=== PATIENT | male | born 1935 | race Caucasian/White ===

== ENCOUNTER 2021-11-24 18:11 | Inpatient (IN) | payer MEDICARE, OTHER ==
[~2021-11-24] VITALS: Ht 165.1 cm; Wt 79.4 kg
--- NOTE | 2021-11-24 18:15 | NUR ---
[id number] FOR NOTED HYPOTENSION S/P DIALYSIS, FEBRILE FILM COLOR TESTER. PLACED COMFORTABLY IN BED. ATTACHED TO MATTRESS SPRING ENCASER. VITALS CHECKED.
--- NOTE | 2021-11-24 18:17 | NUR ---
PATIENT CAME WITH TRACHE ATTACHED TO VENT WITH SETTINGS OF AC MODE, TV 500 PEEP 5, FiO2 30% RATE. WITH RIGHT SUBCLAVIAN PERMCATH FOR HD. WITH GTUBE ON EPIGASTRIC AREA. PATIENT IS AWAKE BUT UNRESPONSIVE TO VERBAL COMMAND. WITHDRAWS TO PAIN. PLACED COMFORTABLY IN BED. VITALS CHECKED. ATTACHED TO MONITOR.
--- NOTE | 2021-11-24 18:20 | NUR ---
IV CANNULA ON LEFT FOREARM DISLODGED.
[2021-11-24] MEDS ORDERED: ACETAMINOPHEN 650 MG/SUPP.RECT RC ONE (18:21)
[2021-11-24] MEDS ORDERED: IV NS 0.9% 500 ML BAG IV ONE ×3 (18:30→22:00)
[2021-11-24] MEDS ORDERED: VANCOMYCIN 1 GM in IV D5W 250 ML IV ONE (18:30)
[2021-11-24] MEDS ORDERED: CEFEPIME 1 GM in IV D5W 50 ML IV ONE (18:30)
--- NOTE | 2021-11-24 18:30 | NUR ---
CXR DONE AT BEDSIDE
--- NOTE | 2021-11-24 18:31 | NUR ---
COVID ANTIGEN SWAB DONE AND GIVEN TO DIAL SCREW ASSEMBLER
--- NOTE | 2021-11-24 18:35 | NUR ---
Olaf mccormack in EDM - 11/24/21 at [address] KUHN MADE AWARE THAT PHARMACY CALLED TO INFORM HIM THAT CEFEPIME CANNOT BE GIVEN TO PATIENT COZ HE IS ALLERGIC TO PENICILLIN
--- NOTE | 2021-11-24 18:36 | NUR ---
RT RECEIVED PT. FOR LOW BP. PORTEX 8 CUFFED ON [facility]. VENT. AC 18 500 +5 30 % . BAG AND MASK AT HEAD OF BED. SPARE TRACH, PLUGGED INTO RED OUTLET. WILL CONTINUE TO MONITOR. Addendum: 11/24/21 at 1838 by LUIS WILSON RT Amended: Links added.
--- NOTE | 2021-11-24 18:45 | NUR ---
TRIED INSERTING F16 IFC BUT IT WAS DIFFICULT. PATIENT HAS HX OF PROSTATE CANCER. DR KUHN INFORMED. HE ORDERED TO USE CUEDE F14 IF WE CAN SO WE CAN TAKE URINE SAMPLES. TRIED USING CUEDE WELL, UNSUCCESSFUL. DR KUHN INFORMED. HE ORDERED NOT TO DO IT.
--- NOTE | 2021-11-24 18:45 | NUR ---
MOVE SHEET SUBMITTED AND CALLED FOR [facility] BED.
--- NOTE | 2021-11-24 19:15 | NUR ---
WHEELED PATIENT TO RADIOLOGY DEPT FOR CT SCAN
--- NOTE | 2021-11-24 19:27 | NUR ---
PER LAB LACTIC ACID 2.1
[2021-11-24 19:30] LABS: CARBON DIOXIDE 26 mmol/L (21-32); CHLORIDE 101 mmol/L (98-107); CREATININE 1.4 mg/dL (0.6-1.3); GLUCOSE 149 mg/dL (74-106); POTASSIUM 4.4 mmol/L (3.5-5.1); SODIUM SERUM 138 mmol/L (136-145); UREA NITROGEN, BLOOD 48 mg/dL (7-18)
--- NOTE | 2021-11-24 19:38 | NUR ---
NURSE EMERGENCY ROOM AT BEDSIDE
[2021-11-24 19:44] LABS: ALANINE AMINOTRANSFERASE 18 U/L (12-78); ALBUMIN 1.6 g/dL (3.4-5.0); ASPARTATE AMINOTRANSFERASE 259 U/L (15-37); BILIRUBIN,DIRECT 0.2 mg/dL (0.0-0.2); BILIRUBIN,TOTAL 0.5 mg/dL (0.2-1.0); TOTAL PROTEIN, SERUM 7.3 g/dL (6.4-8.2)
--- NOTE | 2021-11-24 20:00 | NUR ---
FF UP DR KUHN ABOUT THE CEFEPIME IV. PATIENT IS ALLERGIC TO PENICILLIN. HE ORDERED STILL TO GIVE. CALLED PHARMACY AND SPOKE TO VARGAS. SHE SAID TO CLOSE MONITOR PATIENT FOR ANY UNTOWARDS REACTION.
[2021-11-24 20:19] LABS: BASOPHILS # (AUTO) 0.1 K/uL (0.0-0.2); BASOPHILS % (AUTO) 0.7 % (0.0-2.0); EOSINOPHILS % (AUTO) 0.3 % (0.0-6.0); HEMATOCRIT 25 % (39-51); LYMPHOCYTES # (AUTO) 1.6 K/uL (0.8-4.8); MEAN CORPUSCULAR HGB CONC 33 g/dl (31.0-36.0); MEAN CORPUSCULAR VOLUME 95 fL (80-96); NEUTROPHILS # (AUTO) 8.7 K/uL (1.8-8.9); PLATELET COUNT (AUTO) 240 K/uL (150-450); RED BLOOD CELL COUNT(AUTO) 2.56 MIL/uL (4.5-6.0); WHITE BLOOD COUNT (AUTO) 11.4 K/uL (4.3-11.0)
--- NOTE | 2021-11-24 20:26 | NUR ---
IV INSERTION DONE TO LEFT WRIST USING G20 NEEDLE. FLUSHING DONE.
[2021-11-24 20:37] LABS: ALKALINE PHOSPHATASE 1843 U/L (46-116)
--- NOTE | 2021-11-24 20:44 | NUR ---
CRITICAL LAB LACTIC ACID 2.0
--- NOTE | 2021-11-24 20:58 | NUR ---
CALLED [facility] PAGED DR ROSENBERG FOR ADMISSION
--- NOTE | 2021-11-24 21:39 | NUR ---
DR. KUHN SPEAKING TO DR. ROSENBERG VIA PHONE CALL
--- NOTE | 2021-11-24 22:28 | NUR ---
RODRICK 115-1
[2021-11-24] MEDS ORDERED: ZOLPIDEM TARTRATE 5 MG TABLET PO PRN (22:30)
[2021-11-24] MEDS ORDERED: IV NS 0.9% 1,000 ML IV SCH (22:30)
[2021-11-24] MEDS ORDERED: Z GUARD REMEDY 4 OZ OINT TP PRN (22:30)
[2021-11-24] MEDS ORDERED: MAG HYDROX/AL HYDROX/SIMETH 30 ML UDC PO PRN (22:30)
[2021-11-24] MEDS ORDERED: ONDANSETRON HCL/PF 4 MG/2 ML VIAL IVP PRN (22:30)
[2021-11-24] MEDS ORDERED: MAGNESIUM HYDROXIDE 30 ML UDC PO PRN (22:30)
--- NOTE | 2021-11-24 22:38 | NUR ---
REPORT GIVEN TO SARAH NANCE
--- NOTE | 2021-11-24 22:58 | NUR ---
TRANSFERRED PATIENT VIA STRETCHER ATTACHED TO DIRECTOR FIELD SERVICES AND VENTILATOR.
--- NOTE | 2021-11-24 23:26 | NUR ---
RN NOTE RECEIVED PATIENT AT 2251 FROM ER. ARRIVED VIA GURNEY, TRANSFERRED TO BED BY 3 PEOPLE, MAX ASSIST. PATIENT IS NON-VERBAL, EYES CLOSED, UNABLE TO FOLLOW COMMANDS, OBTUNDED AT THIS TIME. BREATHING EVEN AND UNLABORED. NOTED WITH REFUGIO SPENCER #8. ON VENT, WITH SETTINGS OF AC 18, FIO2 30%, TV 500 ML, PEEP OF 5. TOLERATING WELL WITH OXYGEN SATURATION OF 100 PERCENT. TRACH T-PIECE DRESSING REPLACED. ATTACHED TO TELEMETRY MONITORING. NO DISTRESS NOTED. SKIN WARM AND DRY. PERIPHERAL IV ON LEFT FOREARM 20G & RIGHT WRIST 20G. PATENT. NO INFILTRATION, SECURED. NOTED WITH RIGHT UPPER CHEST PERMCATH FOR HD. DRESSING INTACT, NO BLEEDING. NOTED WITH PEG TUBE IN PLACE. DRESSING INTACT. NO RESIDUAL. NO FEEDING AT THIS TIME. HOB ELEVATED 35 DEGREES. SKIN ASSESSMENT DONE. WOUND PICTURES DONE AND FILED IN CHART. TURNED AND REPOSITIONED. BED LOW, IN LOCKED POSITION. CALL LIGHT WITHIN REACH.
[2021-11-25] VITALS (10 sets, daily range): BP systolic 77–132; BP diastolic 33–66
--- NOTE | 2021-11-25 | NUR ---
RN NOTE NO IVF RUNNING WHEN PATIENT WAS RECEIVED. ORDER OF NS 100 CC/HR NOTED AND CARRIED OUT.
[2021-11-25 00:08] LABS: ALBUMIN 1.5 g/dL (3.4-5.0); BILIRUBIN,DIRECT 0.2 mg/dL (0.0-0.2); BILIRUBIN,TOTAL 0.5 mg/dL (0.2-1.0); TOTAL PROTEIN, SERUM 6.7 g/dL (6.4-8.2)
--- NOTE | 2021-11-25 02:23 | NUR ---
RN NOTE PATIENT NOTED WITH DECREASED BLOOD PRESSURE. SYSTOLIC BP HAS BEEN DECREASING SINCE ADMISSION. MANUAL BLOOD PRESSURE TAKEN, CURRENT BLOOD PRESSURE TAKEN 5 MINUTES APART 95/50 & 98/40. PAGED , CHET. PER , INCREASE IVF NS TO 125 CC/HR FROM 100 CC/HR. NEW ORDER NOTED AND CARRIED OUT.
[2021-11-25] MEDS: IV NS 0.9% 1,000 ML IV SCH ×3 (02:29→17:40)
[2021-11-25] MEDS ORDERED: CEFEPIME 1 GM VIAL ONE (04:40)
[2021-11-25] MEDS ORDERED: CEFEPIME 2 GM in IV D5W 100 ML IV SCH (05:00)
[2021-11-25 06:43] LABS: BASOPHILS % (AUTO) 0.3 % (0.0-2.0); EOSINOPHILS % (AUTO) 0.5 % (0.0-6.0); HEMATOCRIT 23 % (39-51); HEMOGLOBIN 7.3 g/dL (13.5-17.5); LYMPHOCYTES # (AUTO) 1.1 K/uL (0.8-4.8); LYMPHOCYTES % (AUTO) 11.4 % (20.0-44.0); MEAN CORPUSCULAR HGB CONC 32 g/dl (31.0-36.0); MEAN CORPUSCULAR VOLUME 98 fL (80-96); MONOCYTES % (AUTO) 10.3 % (2.0-12.0); NEUTROPHILS # (AUTO) 7.7 K/uL (1.8-8.9); NEUTROPHILS % (AUTO) 77.5 % (43.0-81.0); PLATELET COUNT (AUTO) 174 K/uL (150-450); RED BLOOD CELL COUNT(AUTO) 2.34 MIL/uL (4.5-6.0)
[2021-11-25 07:00] LABS: CARBON DIOXIDE 20 mmol/L (21-32); CHLORIDE 104 mmol/L (98-107); CREATININE 1.5 mg/dL (0.6-1.3); GLUCOSE 161 mg/dL (74-106); MAGNESIUM 2.5 mg/dL (1.8-2.4); PHOSPHORUS 3.2 mg/dL (2.5-4.9); POTASSIUM 4.3 mmol/L (3.5-5.1); SODIUM SERUM 138 mmol/L (136-145); UREA NITROGEN, BLOOD 56 mg/dL (7-18)
--- NOTE | 2021-11-25 07:05 | NUR ---
RN NOTES RECEIVED PT ON BED, VENT /TRACH DEPENDENT , TRACH CARE DONE, TOLERAING VENT SETTING WELL, O2 SAT WNL, ON TELE SR , HR 80'S , PEG TUBE CLAMPED AT THIS TIME, IVF AT 125CC/HR RUNNING , IV SITES CLEAN, DRY AND INTACT, SR UP X3, CALL LIGHT WITHIN EASY REACH, BED LOCKED AND IN LOWEST POSITION, CONTINUE TO MONITOR.
[2021-11-25] MEDS ORDERED: FOLI0.8T23 GT (07:39)
[2021-11-25] MEDS ORDERED: CHOL4PAC GT (07:39)
[2021-11-25] MEDS ORDERED: CARB1TAB21 GT (07:39)
[2021-11-25] MEDS ORDERED: OMEP40CA21 GT (07:39)
[2021-11-25] MEDS ORDERED: INSU100C4 SQ (07:39)
[2021-11-25] MEDS ORDERED: HYDR-4077 GT (07:39)
[2021-11-25] MEDS ORDERED: ENOX40DI SQ (07:39)
[2021-11-25] MEDS ORDERED: NUT.250L18 GT (07:39)
[2021-11-25] MEDS ORDERED: CARV12.5 PO (07:39)
[2021-11-25] MEDS ORDERED: ASPI-1169 GT (07:39)
[2021-11-25] MEDS ORDERED: IPRA3AMP23 IH (07:39)
[2021-11-25] MEDS ORDERED: CHLO473M3 MM (07:39)
[2021-11-25] MEDS ORDERED: POTA20TA83 GT (07:39)
[2021-11-25] MEDS ORDERED: DEXT15DR6 OP (07:39)
[2021-11-25] MEDS ORDERED: EPOE40007 IJ (07:39)
[2021-11-25] MEDS ORDERED: CLONIDINE PATCH TD (07:39)
[2021-11-25] MEDS ORDERED: FERR325T23 GT (07:39)
[2021-11-25] MEDS ORDERED: FINA5TAB3 GT (07:39)
[2021-11-25] MEDS ORDERED: BUME1TAB8 GT (07:39)
[2021-11-25] MEDS ORDERED: VANCOMYCIN POST DIALYSIS 500MG IV PRN ×2 (08:00)
--- NOTE | 2021-11-25 08:21 | NUR ---
Spoke to Dr Wells, updated on pt admission and labs, pt does not need dialysis today. He will ff-up pt.
[2021-11-25] MEDS ORDERED: EPOETIN ALFA-EPBX 10,000 UNIT/ML VIAL IV ONE ×2 (09:00→15:00)
--- NOTE | 2021-11-25 10:15 | NUR ---
Male trached pt received on [facility]. ventilator settings as ordered. alarms set and audible, b/s equal moderate amounts of pale/ yellow secretions. mark portex 8 trach midline and airway patent. numerical control drill press operator performed. back up trach and ambu-bag at bedside. vent plugged in red outlet. Addendum: 11/25/21 at 1625 by REANNA VILLATORO RT Amended: Links added.
--- NOTE | 2021-11-25 10:25 | NUR ---
Male patient asleep and non responsive. Trached portex 8 cuffed midline and airway patent. Back up trach and ambu bag at bedside. Vent plugged into red outlet. Addendum: 11/25/21 at 1027 by REANNA VILLATORO RT Amended: Links added.
--- NOTE | 2021-11-25 12:00 | NUR ---
RN NOTES TRACH CARE DONE, BP TAKEN MANUALLY , SBP IN 90'S , CONTINUE TO MONITOR .
[2021-11-25] MEDS: NEPRO 1,000 ML BOTTLE GT PRN (13:59)
[2021-11-25] MEDS ORDERED: VANCOMYCIN HCL 0.75 GM in IV D5W 250 ML IV SCH (14:00)
[2021-11-25 14:17] LABS: BAND % (MANUAL) 1 % (0.0-5.0); LYMPHOCYTES % (MANUAL) 19 % (16-48); MONOCYTES % (MANUAL) 4 % (0-11.0); NEUTROPHILS % (MANUAL) 75 (42-76); REACTIVE LYMPHOCYTES 1 % (0-0)
[2021-11-25] MEDS: CEFEPIME 2 GM in IV D5W 100 ML IV SCH (17:35)
--- NOTE | 2021-11-25 18:00 | NUR ---
RN NOTES NO SIGNIFICANT CHANGES NOTED ON THIS SHIFT, PT TOLERATING TF AT 25CC/HR , NO RESIDUAL NOTED, NS AT 125C/HR RUNNING , WILL ENDORSE TO LINE CLEANER NURSE FOR CONTINUITY OF CARE.
--- NOTE | 2021-11-25 20:00 | NUR ---
REPAIR DEPARTMENT MANAGER NOTE RECEIVED PT ON BED, VENT /TRACH DEPENDENT , TRACH CARE PROVIDED, TOLERATING VENT SETTING WELL, O2 SAT WNL, ON TELE SR , HR 80'S , PEG TUBE CLAMPED AT THIS TIME, IVF AT 125CC/HR RUNNING , IV SITES CLEAN, DRY AND INTACT, SIDE RAILS UP X3, CALL LIGHT WITHIN EASY REACH, BED LOCKED AND IN LOWEST POSITION, WILL CONTINUE TO MONITOR. Addendum: 11/26/21 at 0216 by MOUNIKA PATRICIA RN CORRECTION 1929 RECEIVED PT ON BED, VENT/TRACH DEPENDENT, PROVIDED TRACH CARE, TOLERATING VENT SETTING WELL, O2 SAT WNL, ON TELE SR, HR 80'S , GT FEEDING IS AT 25 CC/HR, IVF AT 125 CC/HR, IV SITE PATENT AND INTACT, SIDE RAILS UP X3, CALL LIGHT WITHIN EASY REACH, BED LOCKED AND IN LOWEST POSITION, WILL CONTINUE TO MONITOR.
[2021-11-25] MEDS: ACETAMINOPHEN 325 MG TABLET PO PRN (21:50)
[2021-11-26] VITALS (11 sets, daily range): BP systolic 91–122; BP diastolic 41–87
--- NOTE | 2021-11-26 | NUR ---
RN NOTES REPORT GIVEN TO SARAH BRUNNER FOR BRIDGER. VOCAL TEACHER MADE AWARE.
--- NOTE | 2021-11-26 00:01 | NUR ---
FOOD SAFETY DIRECTOR NOTES RECEIVED PTS AND REPORT TO ALEXA PTS REMAINS ON VENT ORDERED WELL TOLERATED BY PTS NO SOB NO DISTRESS NOTED , RECHECK TEMP 98.3 , SUCTION SECRETION DONE , GT FEEDING INCREASE TO 35CC/HR NO RESIDUAL NOTED REPOSITION Q 2 HRS AND PRN.WILL CONTINUE TO MONITOR PTS.
[2021-11-26] MEDS: IV NS 0.9% 1,000 ML IV SCH ×3 (02:36→12:33)
[2021-11-26] MEDS: CEFEPIME 2 GM in IV D5W 100 ML IV SCH ×2 (05:50→17:13)
[2021-11-26 07:04] LABS: CALCIUM, SERUM 7.4 mg/dL (8.5-10.1); CARBON DIOXIDE 17 mmol/L (21-32); CHLORIDE 107 mmol/L (98-107); CREATININE 1.9 mg/dL (0.6-1.3); GLUCOSE 224 mg/dL (74-106); MAGNESIUM 2.7 mg/dL (1.8-2.4); PHOSPHORUS 3.2 mg/dL (2.5-4.9); POTASSIUM 4.8 mmol/L (3.5-5.1); SODIUM SERUM 140 mmol/L (136-145); UREA NITROGEN, BLOOD 74 mg/dL (7-18)
--- NOTE | 2021-11-26 07:24 | NUR ---
TELE CLOSING NOTES ENDORSE PTS TO ADEL FOR CONTINUITY OF CARE.PTS IS STABLE AFEBRILE, FOR HD TODAY.
[2021-11-26 08:09] LABS: IRON, SERUM 46 ug/dl (50-175); TOTAL IRON BINDING CAPACITY 122 ug/dl (250-450)
[2021-11-26 08:41] LABS: BASOPHILS % (AUTO) 0.2 % (0.0-2.0); EOSINOPHILS % (AUTO) 0.6 % (0.0-6.0); HEMATOCRIT 21 % (39-51); MEAN CORPUSCULAR HGB CONC 31 g/dl (31.0-36.0); MEAN CORPUSCULAR VOLUME 98 fL (80-96); MONOCYTES # (AUTO) 1.1 K/uL (0.1-1.30); MONOCYTES % (AUTO) 10.7 % (2.0-12.0); NEUTROPHILS # (AUTO) 8.5 K/uL (1.8-8.9); NEUTROPHILS % (AUTO) 79.5 % (43.0-81.0); PLATELET COUNT (AUTO) 147 K/uL (150-450); WHITE BLOOD COUNT (AUTO) 10.7 K/uL (4.3-11.0)
[2021-11-26 08:43] LABS: HEMOGLOBIN 6.5 g/dL (13.5-17.5)
--- NOTE | 2021-11-26 09:00 | NUR ---
RN NOTES TOP LIFT SCOURER NOTIFIED REGARDING LOW H/H , ORDER RECEIVED TO TRANSFUSE ONE UNIT OF PRBC.
--- NOTE | 2021-11-26 11:24 | NUR ---
WOUND CARE CONSULT: PT HAVING HEMODIALYSIS AT THIS TIME AND NOT TURNED FOR SKIN ASSESSMENT. REVIEWED CHART, NURSING DOCUMENTATION AND PHOTOS WHICH INDICATE SACRAL SCARRING AND MULTIPLE FOOT WOUNDS, PRESENT ON ADMISSION. DR RAYA NOTIFIED OF DPM CONSULT REQUEST. RECOMMENDATIONS MADE FOR SKIN PROTECTION. DISCUSSED WITH NURSING STAFF. PT WAS PLACED ON ISOFLEX LOW AIRLOSS BED. MD IN AGREEMENT WITH PLAN OF CARE.
[2021-11-26 11:29] LABS: BAND % (MANUAL) 3 % (0.0-5.0); LYMPHOCYTES % (MANUAL) 9 % (16-48); MONOCYTES % (MANUAL) 8 % (0-11.0); NEUTROPHILS % (MANUAL) 76 (42-76)
[2021-11-26 11:30] LABS: METAMYELOCYTES % 1 % (0-0); MYELOCYTES % 3 % (0-0)
[2021-11-26] MEDS: ALBUMIN 25% 25 GM in PREMIX 1 EA IV PRN (11:35)
[2021-11-26] MEDS: ACETAMINOPHEN 325 MG TABLET PO PRN (14:15)
[2021-11-26] MEDS ORDERED: VANCOMYCIN 1 GM in IV D5W 250ml IV ONE (15:00)
[2021-11-26] MEDS: NEPRO 1,000 ML BOTTLE GT PRN (15:53)
--- NOTE | 2021-11-26 16:02 | NUR ---
RN NOTES SBP IN LOW 90' ,DR COBOS NOTIFIED, CT OF CHEST POSTPONED TO BE DONE IN AM PER DR COBOS ORDER .
--- NOTE | 2021-11-26 18:53 | NUR ---
RN Closing Nurse atient received 0ne pack RBC tolerated well.Trach care done at the bed side.Patient is resting comfortably and is in no acute distress. P Call light and tray table with personal belongings within reach. Patient was monitored throughout shift and vitals remained in patient's baseline. Interventions were completed as needed. All of patient's needs have been met. Assistance was provided as needed. All due medications given per MD ordered. Will endorse to hourly shift nurse.
--- NOTE | 2021-11-26 20:00 | NUR ---
RN NOTE RECEIVED PATIENT IN BED, OBTUNDED. UNABLE TO FOLLOW COMMANDS. BREATHING EVEN AND UNLABORED. TRACH PRESENT, PORTEX 8. DRESSING CLEAN. VENT SETTINGS ARE FOLLOWS: AC 18, TV 500, FIO2 30%, PEEP 5.0. TOLERATING WELL, OXYGEN SATURATION OF 99 PERCENT. HOB ELEVATED 40 DEGREES. NOTED WITH RIGHT UPPER CHEST PERMCATH. DRESSING INTACT, NO BLEEDING. NOTED WITH PEG TUBE, CURRENTLY INFUSING NEPRO AT 45 CC/HR. NO RESIDUAL. NOTED WITH LEFT FOREARM 20G AND RIGHT FOREARM 20G PERIPHERAL IV. LEFT FOREARM PERIPHERAL IV LEAKING WHEN FLUSHED WITH 5 CC NS. REMOVED. CATHETER STRAIGHT/INTACT. LEFT ARM APPEARS SWOLLEN WITH DISCOLORATION. PICTURE TAKEN AND FILED IN PATIENT CHART. ELEVATED LEFT ARM ON 2 PILLOWS. BED LOW, IN LOCKED POSITION, CALL LIGHT WITHIN REACH, WILL CONTINUE TO MONITOR.
--- NOTE | 2021-11-26 22:10 | NUR ---
RN NOTE MIDLINE INSERTED ON RIGHT UPPER ARM 18G.
[2021-11-27] VITALS: BP 112/63
[2021-11-27] MEDS: IV NS 0.9% 1,000 ML IV SCH
[2021-11-27 04:00] VITALS: BP 108/69
[2021-11-27] MEDS: CEFEPIME 2 GM in IV D5W 100 ML IV SCH ×2 (04:16→16:27)
[2021-11-27 06:49] LABS: BASOPHILS % (AUTO) 0.2 % (0.0-2.0); EOSINOPHILS % (AUTO) 0.7 % (0.0-6.0); HEMATOCRIT 23 % (39-51); LYMPHOCYTES % (AUTO) 11.8 % (20.0-44.0); MEAN CORPUSCULAR HGB CONC 33 g/dl (31.0-36.0); MEAN CORPUSCULAR VOLUME 97 fL (80-96); MONOCYTES # (AUTO) 0.6 K/uL (0.1-1.30); NEUTROPHILS # (AUTO) 7.1 K/uL (1.8-8.9); NEUTROPHILS % (AUTO) 80.3 % (43.0-81.0); PLATELET COUNT (AUTO) 137 K/uL (150-450); RED BLOOD CELL COUNT(AUTO) 2.38 MIL/uL (4.5-6.0); WHITE BLOOD COUNT (AUTO) 8.8 K/uL (4.3-11.0)
[2021-11-27 07:06] LABS: CALCIUM, SERUM 7.8 mg/dL (8.5-10.1); CARBON DIOXIDE 15 mmol/L (21-32); CHLORIDE 108 mmol/L (98-107); CREATININE 2.2 mg/dL (0.6-1.3); GLUCOSE 283 mg/dL (74-106); MAGNESIUM 2.3 mg/dL (1.8-2.4); PHOSPHORUS 2.7 mg/dL (2.5-4.9); SODIUM SERUM 139 mmol/L (136-145)
[2021-11-27 07:22] LABS: BILIRUBIN,DIRECT 0.2 mg/dL (0.0-0.2); BILIRUBIN,TOTAL 0.4 mg/dL (0.2-1.0)
--- NOTE | 2021-11-27 07:31 | NUR ---
RN OPENING NOTE PATIENT RECEIVED IN BED, OBTUNDED, EYES CLOSED. PATIENT ON MECHANICAL VENTILATOR WITH FIO2 30%, NO SIGNS OF LABORED BREATHING AT THIS TIME. G TUBE IN PLACE RUNNING GLUCERNA AT 45CC/HR. RIGHT UA MIDLINE AND RIGHT FA 20G IN PLACE RUNNING NS AT 125CC/HR. LEFT ARM RED AND SWOLLEN, PER CLIENT SERVICE ASSOCIATE IV IN RIGHT ARM WAS INFILTRATED AND REMOVED. NO SIGNS OF ACUTE DISTRESS NOTED AT THIS TIME. BED LOCKED AND IN LOWEST POSITION, CALL LIGHT WITHIN REACH, 2 SIDE RAILS UP. WILL CONTINUE TO MONITOR.
[2021-11-27 07:37] LABS: HEMOGLOBIN 7.6 g/dL (13.5-17.5)
[2021-11-27 07:39] LABS: UREA NITROGEN, BLOOD 83 mg/dL (7-18)
[2021-11-27 07:40] LABS: ALBUMIN 1.3 g/dL (3.4-5.0)
--- NOTE | 2021-11-27 07:43 | NUR ---
RN NOTE CRITICAL LAB VALUE OF BUN 83 AND ALBUMIN 1.3 RECEIVED. REPORTED TO DO KERZUMA. NO NEW ORDER AT THIS TIME. WILL CONTINUE TO MONITOR.
[2021-11-27 08:00] VITALS: BP 106/58
--- NOTE | 2021-11-27 08:15 | NUR ---
RN NOTE HD SCHEDULED FOR TODAY. WILL CONTINUE TO MONITOR.
[2021-11-27] MEDS: IV NS 0.9% 1,000 ML IV PRN ×2 (10:49→20:53)
[2021-11-27 12:00] VITALS: BP 120/52
[2021-11-27] MEDS: ALBUMIN 25% 25 GM in PREMIX 1 EA IV PRN (13:26)
[2021-11-27 16:00] VITALS: BP 109/61
[2021-11-27] MEDS: NEPRO 1,000 ML BOTTLE GT PRN (17:34)
--- NOTE | 2021-11-27 18:41 | NUR ---
RN CLOSING NOTE PATIENT REMAINS IN BED, OBTUNDED, EYES CLOSED. PATIENT ON MECHANICAL VENTILATOR WITH FIO2 30%, NO SIGNS OF LABORED BREATHING AT THIS TIME. G TUBE IN PLACE RUNNING GLUCERNA AT 45CC/HR. RIGHT UA MIDLINE AND RIGHT FA 20G IN PLACE RUNNING NS AT 125CC/HR. HD TODAY, PATIENT TOLERATED OKAY, ALBUMIN GIVEN, NO FLUID REMOVED. NO SIGNS OF ACUTE DISTRESS NOTED AT THIS TIME. BED LOCKED AND IN LOWEST POSITION, CALL LIGHT WITHIN REACH, 2 SIDE RAILS UP. WILL ENDORSE TO VP INFORMATION TECHNOLOGY NURSE.
--- NOTE | 2021-11-27 19:23 | NUR ---
CALLED [facility] AND PAGED DR ROSENBERG RE: ON THE MONITOR, PATIENT IS HAVING A MAJOR SINUS PAUSES,AFIB, AND HR WENT DOWN TO 30'S. CHARGE NURSE MADE AWARE.
--- NOTE | 2021-11-27 19:24 | NUR ---
RN NOTE REPORTED BY PLASTER WHITTLER THAT PT'S HEART MISSED A FEW BEATS AD IS NOW AFIB. REPORTED TO DO KERZUMA. NO RESPONSE AT THIS TIME. ENDORSED TO TOOL MAKER NURSE TO CONTACT DELVIN KIRBY FOR EKG.
--- NOTE | 2021-11-27 19:33 | NUR ---
CALLED BACK AND INFORMED THE CURRENT READING OF THE TELE MONITOR AND TALKED TO THE TRIAGE SPECIALIST. CHARGE NURSE KANNAN MADE AWARE.
--- NOTE | 2021-11-27 19:57 | NUR ---
stat EKG DONE, SR 70. RESULT ATTACHED TO THE CHART.
--- NOTE | 2021-11-27 20:20 | NUR ---
HR (MANUALLY) 78, UNABLE TO DO THE MANUAL BP TAKING, CAN TAKE BP ONLY ON THE RIGHT LEG. BP CHECKED ON THE MONITOR= 84/28 RIGHT LEG, HR 74. PAGED DR ROSENBERG, WAITING FOR THE CALL BACK, CHARGE NURSE KANNAN MADE AWARE.
--- NOTE | 2021-11-27 20:31 | NUR ---
CALLED BACK AND INFORMED THE V/S. WANTS TO RECHECK THE BP ON THE RIGHT FOREARM.
[2021-11-27] MEDS: VANCOMYCIN POST DIALYSIS 500MG IV PRN ×2 (20:51)
[2021-11-27 21:27] VITALS: BP 150/67
--- NOTE | 2021-11-27 21:29 | NUR ---
BP RECHECKED ON THE RIGHT FOREARM= 150/67, HR 83.
[2021-11-28] VITALS: BP 125/49
[2021-11-28 04:00] VITALS: BP 122/59
[2021-11-28] MEDS: CEFEPIME 2 GM in IV D5W 100 ML IV SCH (04:43)
[2021-11-28] MEDS: IV NS 0.9% 1,000 ML IV PRN ×2 (04:48→16:45)
[2021-11-28 07:19] LABS: BASOPHILS % (AUTO) 0.2 % (0.0-2.0); EOSINOPHILS % (AUTO) 0.9 % (0.0-6.0); HEMATOCRIT 24 % (39-51); HEMOGLOBIN 7.7 g/dL (13.5-17.5); LYMPHOCYTES % (AUTO) 9.3 % (20.0-44.0); MEAN CORPUSCULAR HGB CONC 33 g/dl (31.0-36.0); MEAN CORPUSCULAR VOLUME 96 fL (80-96); MONOCYTES # (AUTO) 0.8 K/uL (0.1-1.30); MONOCYTES % (AUTO) 7.5 % (2.0-12.0); NEUTROPHILS % (AUTO) 82.1 % (43.0-81.0); PLATELET COUNT (AUTO) 122 K/uL (150-450); RED BLOOD CELL COUNT(AUTO) 2.45 MIL/uL (4.5-6.0)
--- NOTE | 2021-11-28 07:30 | NUR ---
TAXI SERVICER OPENING NOTES RECEIVED PATIENT ON BED, OBTUNDED. ON MECHANICAL VENTILATOR TOLERATING CURRENT SETTINGS WELL. NO SOB NOTED. NOT IN DISTRESS. WITH NO SIGNS OF PAIN VIA FLACC LEVEL OF PAIN. ON TELE MONITOR CURRENTLY READING SINUS RHYTHM AT 63BPM. WITH IV ACCES AT LRIGHT UPPER ARM MIDLINE WITH IVF NS AT 125ML/HR INFUSING WELL. WITH RIGHT CHESTWALL PERMACATH FOR HD WITH CLEAN AND DRY DRESSING. SAFETY MEASURES IN PLACED. CALL LIGHT WITHIN REACH. BED ON LOWEST LOCKED POSITION, SIDE RAILS UP X2. WILL CONTINUE TO MONITOR.
[2021-11-28 07:37] LABS: CALCIUM, SERUM 7.7 mg/dL (8.5-10.1); CARBON DIOXIDE 16 mmol/L (21-32); CHLORIDE 108 mmol/L (98-107); CREATININE 1.8 mg/dL (0.6-1.3); GLUCOSE 284 mg/dL (74-106); MAGNESIUM 2.2 mg/dL (1.8-2.4); PHOSPHORUS 2.5 mg/dL (2.5-4.9); POTASSIUM 3.9 mmol/L (3.5-5.1); SODIUM SERUM 138 mmol/L (136-145); UREA NITROGEN, BLOOD 63 mg/dL (7-18)
[2021-11-28 08:00] VITALS: BP 109/46
[2021-11-28 09:08] LABS: BAND % (MANUAL) 9 % (0.0-5.0); EOSINOPHILS % (MANUAL) 2 % (0-4); LYMPHOCYTES % (MANUAL) 15 % (16-48); MONOCYTES % (MANUAL) 8 % (0-11.0); MYELOCYTES % 1 % (0-0); NEUTROPHILS % (MANUAL) 65 (42-76)
[2021-11-28 12:00] VITALS: BP 116/53
[2021-11-28] MEDS: CEFTAZIDIME 1 G in IV D5W 50 ML IV SCH ×2 (14:00→21:19)
[2021-11-28 16:00] VITALS: BP 101/54
[2021-11-28] MEDS: NEPRO 1,000 ML BOTTLE GT PRN (18:14)
--- NOTE | 2021-11-28 19:32 | NUR ---
BRADDER CLOSING NOTES PATIENT ON BED, OBTUNDED. ON MECHANICAL VENTILATOR TOLERATING CURRENT SETTINGS WELL. NO SOB NOTED. NOT IN DISTRESS. WITH NO SIGNS OF PAIN VIA FLACC LEVEL OF PAIN. ON TELE MONITOR CURRENTLY READING SINUS RHYTHM AT 65BPM. WITH IV ACCES AT LRIGHT UPPER ARM MIDLINE WITH IVF NS AT 125ML/HR INFUSING WELL. WITH RIGHT CHESTWALL PERMACATH FOR HD WITH CLEAN AND DRY DRESSING. ON G-TUBE FEEDING GLUCERNA AT 40ML/HR RUNNING WELL. SAFETY MEASURES IN PLACED. CALL LIGHT WITHIN REACH. BED ON LOWEST LOCKED POSITION, SIDE RAILS UP X2. WILL ENDORSE TO NEXT SHIFT FOR BRIDGER.
--- NOTE | 2021-11-28 19:35 | NUR ---
RN OPENING NOTES RECEIVED PATIENT IN BED, OBTUNDED, RESPONSIVE TO PAINFUL STIMULI. . ON TRACH TO MECHANICAL VENTILATOR SETTING AND TOLERATED WELL. BREATHING EVEN AND UNLABORED. IV ACCES LIDIA MIDLINE INTACT AND PATENT. WITH RUNNING IVF NS AT 125ML/HR. ON RCW HD PERMACATH INTACT AND PATENT AND COVERED WITH DRY DRESSING. NO FACIAL GRIMACING NOTED. ALL SAFETY MEASURES IN PLACE. PLACE CALL LIGHT WITHIN REACH. BED IN LOWEST POSITION AND LOCKED. SIDE RAILS UP X3. WILL CONTINUE TO MONITOR.
--- NOTE | 2021-11-28 19:37 | NUR ---
RN NOTES: ON GTUBE FEEDING GLUCERNA AT 45CC/HR AND PT TOLERATED WELL.
[2021-11-28 20:00] VITALS: BP 128/57
[2021-11-29] VITALS: BP 104/54
[2021-11-29 04:00] VITALS: BP 112/56
[2021-11-29] MEDS: CEFTAZIDIME 1 G in IV D5W 50 ML IV SCH ×3 (04:34→21:23)
--- NOTE | 2021-11-29 05:06 | NUR ---
RN NOTES: SPOKE WITH DR. ANDONIAN. GAGNON. NOTIFIED , PT IS ON HEMO DIALYSIS, V/S STABLE. BP-118/57, PULSE-84. IF HE STILL WANT TO CONTINUE WITH NS 125CC/HR IVF? STATED CONTINUE TO THE IV HYDRATION AT THIS MOMENT. WILL CONTINUE TO MONITOR
--- NOTE | 2021-11-29 06:40 | NUR ---
RN CLOSING NOTES RECEIVED PATIENT IN BED, OBTUNDED, RESPONSIVE TO PAINFUL STIMULI. . ON TRACH TO MECHANICAL VENTILATOR SETTING, O2 SAT 100% AND TOLERATED WELL. BREATHING EVEN AND UNLABORED. TELE MONITORING SHOWS ON AND OFF SINUS TACH TO SINUS RHYTHM. IV ACCES LIDIA MIDLINE INTACT AND PATENT. WITH RUNNING IVF NS AT 125ML/HR. ON RCW HD PERMACATH INTACT AND PATENT AND COVERED WITH DRY DRESSING. NO FACIAL GRIMACING NOTED. ALL DUE MEDS GIVEN ORDER. ALL SAFETY MEASURES IN PLACE. PLACE CALL LIGHT WITHIN REACH. BED IN LOWEST POSITION AND LOCKED. SIDE RAILS UP X3. WILL ENDORSE TO MORNING SHIFT NURSE.
--- NOTE | 2021-11-29 07:50 | NUR ---
ABSEILING INSTRUCTOR OPENING NOTES RECEIVED PATIENT IN BED, OBTUNDED, RESPONSIVE TO PAINFUL STIMULI. ON TRACH TO MECHANICAL VENTILATOR SETTING, O2 SAT 100% AND TOLERATING WELL AT THIS TIME. BREATHING EVEN AND UNLABORED. TELE MONITORING SHOWS ON AND OFF A-FIB TO SINUS RHYTHM. IV ACCES LIDIA MIDLINE INTACT AND PATENT WITH RUNNING NS AT 125ML/HR. ON RCW HD PERMACATH INTACT AND PATENT AND COVERED WITH DRY DRESSING. NO FACIAL GRIMACING NOTED. SAFETY PRECAUTIONS IN PLACE; BED IN LOW POSITION AND LOCKED, RAILS UP X2, CALL LIGHT WITHIN REACH. WILL CONTINUE TO MONITOR PATIENT.
[2021-11-29 08:41] LABS: CARBON DIOXIDE 13 mmol/L (21-32); CHLORIDE 109 mmol/L (98-107); CREATININE 1.9 mg/dL (0.6-1.3); GLUCOSE 306 mg/dL (74-106); MAGNESIUM 2.8 mg/dL (1.8-2.4); PHOSPHORUS 2.7 mg/dL (2.5-4.9); POTASSIUM 4.3 mmol/L (3.5-5.1); SODIUM SERUM 141 mmol/L (136-145); VANCOMYCIN,RANDOM 19 ug/ml (18-26)
[2021-11-29] MEDS: IV NS 0.9% 1,000 ML IV PRN (08:56)
[2021-11-29 09:20] VITALS: BP 94/67
[2021-11-29 09:20] LABS: UREA NITROGEN, BLOOD 84 mg/dL (7-18)
[2021-11-29] MEDS: APIXABAN 2.5 MG TABLET PO SCH ×2 (11:36→16:11)
[2021-11-29 13:27] VITALS: BP 100/42
[2021-11-29] MEDS: ALBUMIN 25% 25 GM in PREMIX 1 EA IV PRN (15:14)
[2021-11-29 16:03] VITALS: BP 100/47
--- NOTE | 2021-11-29 16:12 | NUR ---
FRUIT VENDOR NOTES 1700 ELIQUIS NON-ADMINISTERED. PATIENT CURRENTLY ON HD AT THIS VERY TIME.
[2021-11-29] MEDS ORDERED: CEFEPIME 1 GM in IV D5W 50 ML IV SCH (17:00)
[2021-11-29 17:29] LABS: NEUTROPHILS # (AUTO) 10.6 K/uL (1.8-8.9)
[2021-11-29 17:52] LABS: BASOPHILS % (AUTO) 0.3 % (0.0-2.0); EOSINOPHILS % (AUTO) 0.7 % (0.0-6.0); HEMATOCRIT 23 % (39-51); HEMOGLOBIN 7.4 g/dL (13.5-17.5); MEAN CORPUSCULAR HGB CONC 32 g/dl (31.0-36.0); MEAN CORPUSCULAR VOLUME 96 fL (80-96); MONOCYTES % (AUTO) 8.6 % (2.0-12.0); NEUTROPHILS % (AUTO) 77.4 % (43.0-81.0); PLATELET COUNT (AUTO) 101 K/uL (150-450); RED BLOOD CELL COUNT(AUTO) 2.41 MIL/uL (4.5-6.0); WHITE BLOOD COUNT (AUTO) 13.7 K/uL (4.3-11.0)
[2021-11-29 17:53] LABS: LYMPHOCYTES # (AUTO) 1.8 K/uL (0.8-4.8); MONOCYTES # (AUTO) 1.2 K/uL (0.1-1.30)
--- NOTE | 2021-11-29 17:54 | NUR ---
HOLE FILLER NOTES HD DONE. PATIENT TOLERATED WELL. PER HD NURSE 1 LITER REMOVED. POST HD BP 112/62 WILL CONTINUE TO MONITOR.
[2021-11-29 18:12] LABS: BAND % (MANUAL) 6 % (0.0-5.0); BASOPHILS % (MANUAL) 0 % (0.0-2.0); EOSINOPHILS % (MANUAL) 1 % (0-4); LYMPHOCYTES % (MANUAL) 12 % (16-48); METAMYELOCYTES % 1 % (0-0); MONOCYTES % (MANUAL) 11 % (0-11.0); MYELOCYTES % 2 % (0-0); NEUTROPHILS % (MANUAL) 68 (42-76)
--- NOTE | 2021-11-29 18:59 | NUR ---
ADDICTION THERAPIST CLOSING NOTES PATIENT IN BED, OBTUNDED, RESPONSIVE TO PAINFUL STIMULI. ON TRACH TO MECHANICAL VENTILATOR SETTING, O2 SAT 100% AND TOLERATING WELL AT THIS TIME. BREATHING EVEN AND UNLABORED. TELE MONITORING SHOWS ON AND OFF A-FIB TO SINUS RHYTHM. IV ACCES LIDIA MIDLINE INTACT AND PATENT WITH RUNNING NS AT 75ML/HR. ON RCW HD PERMACATH INTACT AND PATENT AND COVERED WITH DRY DRESSING. NO FACIAL GRIMACING NOTED. ALL NEEDS ATTENDED DURING THE DAY. SAFETY PRECAUTIONS IN PLACE; BED IN LOW POSITION AND LOCKED, RAILS UP X2, CALL LIGHT WITHIN REACH. WILL ENDORSE TO POTATO CHIP SACKING MACHINE OPERATOR NURSE FOR BRIDGER.
--- NOTE | 2021-11-29 19:40 | NUR ---
Patient is alert opens eyes but not oriented. Currently Afib on the monitor low 100s. No signs of distress. G-tube feeding at 45mL/hr of nepro as per dr gilmore. LIDIA midline flushed and patent NS running at 75ml/hr. Will give vanco since it is ordered as post dialysis and pt had dialysis earlier. All safety measures in place. will continue to monitor.
[2021-11-29] MEDS: VANCOMYCIN POST DIALYSIS 500MG IV PRN ×2 (19:51)
[2021-11-29] MEDS: ACETAMINOPHEN 325 MG TABLET PO PRN (19:56)
[2021-11-29 20:00] VITALS: BP 112/46
--- NOTE | 2021-11-29 20:30 | NUR ---
Patient has small episodes (2 seconds) with no heart beat but then the rest of the time is in AFib at 100-110. Did also have a 6 second episode without beat on monitor. Patient appears in no signs of distress. Other vitals are stable. Notified on-call with no new order just continue with Dr. Lantigua's plans who saw patient earlier. (Dr. Lantigua started pt. on eliquis and stated to monitor pauses on tele/front desk monitor).
[2021-11-29 20:46] LABS: THYROID STIMULATING HORMONE 9.733 uIU/mL (0.358-3.74)
--- NOTE | 2021-11-29 21:20 | NUR ---
converted to SR in 60s now.
[2021-11-29] MEDS: NEPRO 1,000 ML BOTTLE GT PRN (22:00)
[2021-11-30] VITALS: BP 105/43
[2021-11-30] MEDS: IV NS 0.9% 1,000 ML IV PRN ×2 (00:35→14:56)
[2021-11-30 04:00] VITALS: BP 103/56
[2021-11-30] MEDS: CEFTAZIDIME 1 G in IV D5W 50 ML IV SCH ×3 (04:21→21:41)
--- NOTE | 2021-11-30 06:00 | NUR ---
RN CLOSING NOTES Patient has stayed in SR since converting over at 2120 HR stayed in 60s. Patient still obtunded but opens eyes when hears loud noise or is touched. Kept clean and dry, turned q2h. Tolerating nepro well at 45ml/hr x24 hours. LIDIA midline ns running at 75ml/he intact and patent. No s/s of hypo or hyperglycemia. No adverse side effects from IV ABX tolerating well. Currently in bed no signs of distress. O2 sats kept above 98%.
[2021-11-30 06:52] LABS: CALCIUM, SERUM 7.9 mg/dL (8.5-10.1); CARBON DIOXIDE 19 mmol/L (21-32); CHLORIDE 104 mmol/L (98-107); CREATININE 1.5 mg/dL (0.6-1.3); GLUCOSE 315 mg/dL (74-106); MAGNESIUM 2.3 mg/dL (1.8-2.4); PHOSPHORUS 2.5 mg/dL (2.5-4.9); POTASSIUM 3.8 mmol/L (3.5-5.1); SODIUM SERUM 136 mmol/L (136-145); UREA NITROGEN, BLOOD 55 mg/dL (7-18)
[2021-11-30 07:04] LABS: BASOPHILS % (AUTO) 0.3 % (0.0-2.0); EOSINOPHILS % (AUTO) 0.8 % (0.0-6.0); HEMATOCRIT 24 % (39-51); HEMOGLOBIN 7.5 g/dL (13.5-17.5); LYMPHOCYTES # (AUTO) 1.1 K/uL (0.8-4.8); LYMPHOCYTES % (AUTO) 9.7 % (20.0-44.0); MEAN CORPUSCULAR HGB CONC 32 g/dl (31.0-36.0); MEAN CORPUSCULAR VOLUME 97 fL (80-96); MONOCYTES % (AUTO) 8.8 % (2.0-12.0); NEUTROPHILS # (AUTO) 9.2 K/uL (1.8-8.9); NEUTROPHILS % (AUTO) 80.4 % (43.0-81.0); PLATELET COUNT (AUTO) 93 K/uL (150-450); RED BLOOD CELL COUNT(AUTO) 2.45 MIL/uL (4.5-6.0); WHITE BLOOD COUNT (AUTO) 11.4 K/uL (4.3-11.0)
--- NOTE | 2021-11-30 07:30 | NUR ---
RN OPENING NOTES RECEIVED PATIENT IN BED. OBTUNDED, OPENING EYES TO STIMULI. NOT IN DISTRESS NO FACIAL GRIMACING NOTED. TRACH TO VENT FIO2 30 VT 500 AC 18 PEEP 5 SATING 98%. RIGHT PERMACATH IN PLACE NO BLEEDING NOTED. WITH LIDIA MIDLINE PATENT AND INTACT IVF RUNNING NS @ 75CCHR. GT PATENT AND INTACT NO RESIDUAL NOTED WITH TF RUNNING NEPRO 1.8 @ 45CCHR. KEPT HOB ELEVATED. BED TO LOWEST POSITION AND LOCKED.
[2021-11-30 08:00] VITALS: BP 118/56
[2021-11-30] MEDS: APIXABAN 2.5 MG TABLET PO SCH ×2 (09:00→16:11)
--- NOTE | 2021-11-30 09:13 | NUR ---
RN NOTES PATIENT HEMOGLOBIN LEVEL AM LABS TODAY IS 7.5 AND PLATELET 93. TELECOM COORDINATOR MARTA THOMAS MADE AWARE OF THE RECENT LABS AND AWAITING FOR RESPONSE IF OK TO GIVE OR HOLD ELIQUIS 2.5MG DOSE.
--- NOTE | 2021-11-30 09:32 | NUR ---
WOUND CARE CONSULT: PT PRESENTS WITH SACRAL SCARRING WITH SURROUNDING INTACT DEEP TISSUE INJURY AND BILATERAL LOWER BUTTOCKS DISCOLORATION WITH SCARRING, PRESENT ON ADMISSION. LOWER EXTREMITY WOUNDS FOLLOWED BY DPM. RECOMMENDATIONS MADE FOR SKIN PROTECTION. DISCUSSED WITH NURSING STAFF. PT IS ON ZACK ISOFLEX LOW AIRLOSS BED. IN AGREEMENT WITH PLAN OF CARE. Addendum: 11/30/21 at 0956 by RICK GUZMAN WNDNU Amended: Links added.
--- NOTE | 2021-11-30 09:53 | NUR ---
RN NOTES RECEIVED RESPONSE FROM TONIA THOMAS TO HOLD DOSE OF ELIQUIS AND DO OCCULT BLOOD NOTED. Addendum: 11/30/21 at 0954 by TOOTIE TEIXEIRA RN CHARGE NURSE KEE MADE AWARE OF THE NEW ORDER
--- NOTE | 2021-11-30 11:31 | NUR ---
RN NOTES DAUGHTER EMERSON CALLED AND SPOKE WITH HIM ON UPDATE WITH HER FATHER AND PER DAUGHTER HAS BEEN TRYING TO [employer] CASE MANAGEMENT FOR DAUGHTER'S REQUEST OF TRANSFERRING PATIENT CARE TO [facility]. CALLED CASE MANAGEMENT AND MADE AWARE OF DAUGHTER'S REQUEST AND WAS GIVEN THE DAUGHTER'S CONTACT NUMBER [phone] AND PER EMISSIONS REPAIR TECHNICIAN THEY WILL CONTACT THE DAUGHTER FOR FURTHER INFORMATION.
[2021-11-30 12:00] VITALS: BP 103/52
[2021-11-30] MEDS ORDERED: DEXTROSE 50%-WATER 50 ML DISP.SYRIN IV PRN (14:00)
[2021-11-30 15:51] LABS: BAND % (MANUAL) 2 % (0.0-5.0); LYMPHOCYTES % (MANUAL) 11 % (16-48); MONOCYTES % (MANUAL) 8 % (0-11.0); NEUTROPHILS % (MANUAL) 78 (42-76); REACTIVE LYMPHOCYTES 1 % (0-0)
[2021-11-30 16:00] VITALS: BP 99/53
[2021-11-30] MEDS: CARVEDILOL 12.5 MG TABLET PO SCH (16:11)
[2021-11-30] MEDS: CHLORHEXIDINE GLUCONATE 15 ML UDC MM SCH (16:12)
--- NOTE | 2021-11-30 17:21 | NUR ---
RN NOTES CALLED RADIOLOGY TWICE FOR PATIENT'S CHEST CT WO CONTRAST ORDER BUT WAS NO ANSWER. CHARGE NURSE MADE AWARE
[2021-11-30] MEDS: BLOOD SUGAR DIAGNOSTIC 1 EACH STRIP IN SCH ×2 (17:32→23:09)
[2021-11-30] MEDS: INSULIN REGULAR, HUMAN 100 UNIT/ML 3 ML VIAL SQ PRN ×2 (17:35→23:11)
--- NOTE | 2021-11-30 18:27 | NUR ---
RN CLOSING NOTES PATIENT IN BED TRACH TO VENT NOT IN DISTRESS NO FACIAL GRIMACING NOTED. PATIENT SINUS RHYTHM ON 70S. GT PATENT WITH TF FEEDING RUNNING. RIGHT PERMACATH IN PLACE. MED RECON DONE TODAY AND PATIENT ACCUCHECK Q6HR. ACCUCHECK [id number] WITH 6 UNITS INSULIN GIVEN PER SLIDING SCALE. CALLED RADIOLOGY FOR CT CHEST WO CONTRAST BUT NO RESPONSE. PATIENT FOR OCCULT BLOOD PT NO BM TODAY, VANCO TROUGH IN AM AND CXR IN AM. BED TO LOWEST POSITION AND LOCKED. WILL ENDORSE TO CLOUD ENGINEER NURSE ON DUTY.
--- NOTE | 2021-11-30 19:30 | NUR ---
RN NOTE PT RECEIVED IN BED, RESTING COMFORTABLY. PT IS TRACH/VENT WITH SETTINGS AT AC:18, TV: 500, FIO2:30%, AND PEEP OF 5. TOLERATING SETTINGS WELL. PT IS OBTUNDED. ON CHANNEL DIRECTOR SHOWING NSR. G-TUBE RUNNING NEPRO AT 45 CC/HR. PT TOLERATING WELL. IV ACCESS NOTED ON RIGHT UA ML, WELL RIGHT CW PERMACATH NOTED. ALL SAFETY MEASURES IMPLEMENTED. WILL CONTINUE TO MONITOR AND ASSESS FOR ANY CHANGES DURING SHIFT.
[2021-11-30 20:00] VITALS: BP 131/54
[2021-11-30] MEDS: CARBIDOPA/LEVODOPA 25/100 MG 1 UDTAB GT SCH (21:41)
[2021-11-30] MEDS: NEPRO 1,000 ML BOTTLE GT PRN (22:40)
[2021-11-30] MEDS: INSULIN GLARGINE, 100 UNIT/ML CARTRIDGE SQ SCH (23:12)
--- NOTE | 2021-11-30 23:23 | NUR ---
RN NOTE SPOKE WITH DR. ARGUETA REGARDING PT G-TUBE SITE WITH BLOOD NOTED AROUND SITE AND REDNESS. ELLIE ORDERED STAT KUB FOR G-TUBE PLACEMENT. ORDER NOTED.
[2021-11-30] MEDS ORDERED: DIATR MEGLU/DIATRIZOATE SODIUM 30 ML BOTTLE (GASTROGRAPHIN) ONE (23:33)
--- NOTE | 2021-11-30 23:38 | NUR ---
RN NOTE PER ELLIE, OKAY TO HOLD OFF ON KUB AND CONTINUE FEEDING. ORDER NOTED AND CARRIED OUT.
[2021-12-01] VITALS (12 sets, daily range): BP systolic 93–138; BP diastolic 39–93
[2021-12-01] MEDS: BLOOD SUGAR DIAGNOSTIC 1 EACH STRIP IN SCH ×3 (05:06→17:28)
[2021-12-01] MEDS: CEFTAZIDIME 1 G in IV D5W 50 ML IV SCH ×3 (05:06→22:59)
[2021-12-01] MEDS: INSULIN REGULAR, HUMAN 100 UNIT/ML 3 ML VIAL SQ PRN (05:08)
[2021-12-01] MEDS: ALBUMIN 25% 25 GM in PREMIX 1 EA IV PRN (05:46)
[2021-12-01] MEDS: IV NS 0.9% 1,000 ML IV PRN (05:51)
--- NOTE | 2021-12-01 06:36 | NUR ---
RN NOTE NO CHANGES IN PT CONDITION DURING SHIFT. PT IS TRACH/VENT WITH SETTINGS AT AC:18, TV: 500, FIO2:30%, AND PEEP OF 5. TOLERATING SETTINGS WELL. PT IS OBTUNDED. ON SCREENING TECH SHOWING NSR. G-TUBE RUNNING NEPRO AT 45 CC/HR. PT TOLERATING WELL. IV ACCESS NOTED ON RIGHT UA ML, WELL RIGHT CW PERMACATH NOTED. PT CURRENTLY RECEIVING DIALYSIS. ALL SAFETY MEASURES IMPLEMENTED. WILL ENDORSE TO MORNING SHIFT RN FOR BRIDGER.
[2021-12-01 07:13] LABS: BASOPHILS % (AUTO) 0.4 % (0.0-2.0); EOSINOPHILS % (AUTO) 0.9 % (0.0-6.0); LYMPHOCYTES # (AUTO) 1.9 K/uL (0.8-4.8); LYMPHOCYTES % (AUTO) 16.2 % (20.0-44.0); MEAN CORPUSCULAR HGB CONC 31 g/dl (31.0-36.0); MEAN CORPUSCULAR VOLUME 96 fL (80-96); MONOCYTES # (AUTO) 0.9 K/uL (0.1-1.30); MONOCYTES % (AUTO) 7.7 % (2.0-12.0); NEUTROPHILS # (AUTO) 8.7 K/uL (1.8-8.9); NEUTROPHILS % (AUTO) 74.8 % (43.0-81.0); PLATELET COUNT (AUTO) 79 K/uL (150-450); RED BLOOD CELL COUNT(AUTO) 2.11 MIL/uL (4.5-6.0); WHITE BLOOD COUNT (AUTO) 11.6 K/uL (4.3-11.0)
--- NOTE | 2021-12-01 07:42 | NUR ---
RN OPENING NOTE PATIENT IN BED RESTING, OBTUNDED, NO S/S OF PAIN NOTED AT THIS TIME. ON VENT SETTING AT AC: 18, TV: 500, FIO2: 30, PEEP: 5 TOLERATING SETTING WELL, SATURATION 98-100%. IV ACCESS LIDIA MIDLINE, INTACT, PATENT AND FLUSHING WELL. PATIENT ON EXTERNAL BLOW MOLD MACHINE OPERATOR WITH CURRENT READING OF AFIB AND HR OF 105. FALL AND SAFETY MEASURES IN PLACE, BED ALARM ON, BED IN LOW AND LOCK POSITION, CALL LIGHT AND TABLE WITHIN EASY REACH, SIDE RAILS UP X2. WILL CONTINUE TO MONITOR.
--- NOTE | 2021-12-01 07:44 | NUR ---
WOUND CARE CONSULT: PT SEEN FOR G TUBE SITE AND SMALL AMOUNT OF RED/BROWN DRAINAGE NOTED. SURGICAL CONSULT REQUESTED FROM DR ASCENCIO. DISCUSSED WITH NURSING STAFF AND SUBSTATION OPERATOR APPRENTICE. PMD TO BE NOTIFIED THIS AM BY RN.
[2021-12-01 07:53] LABS: HEMATOCRIT 20 % (39-51); HEMOGLOBIN 6.3 g/dL (13.5-17.5)
[2021-12-01] MEDS: CARVEDILOL 12.5 MG TABLET PO SCH ×2 (09:00→17:00)
--- NOTE | 2021-12-01 09:00 | NUR ---
RN NOTE LAB CALLED PATIENT HEMOGLOBIN IS 6.3, DOCTOR AND CHARGE NURSE AWARE.
--- NOTE | 2021-12-01 09:15 | NUR ---
RN NOTE PATIENT'S 0900 CARVEDILOL WAS NOT GIVEN PATIENT HAD DIALYSIS AND BLOOD PRESSURE WAS 93/55.
--- NOTE | 2021-12-01 09:30 | NUR ---
RN NOTE PATIENT G-TUBE FEEDING WAS STOPPED DUE TO SITE SEEMED TO BE HAVING SOME DISCHARGE WITH BLOOD. DOCTOR SAID TO STOP FEEDING AND ONLY USE G-TUBE SITE FOR MEDICATIONS. A CT ABDOMEN WAS ORDERED AND WOUND CONSULT. CHARGE NURSE AWARE.
[2021-12-01] MEDS: LEVOTHYROXINE SODIUM 25 MCG TABLET GT SCH (09:40)
[2021-12-01] MEDS: FERROUS SULFATE (325 MG) 325 MG/TAB TABLET GT SCH (09:40)
[2021-12-01] MEDS: VIT B CMPLX 3/FA/VIT C/BIOTIN 1 TAB TABLET GT SCH (09:40)
[2021-12-01] MEDS: CHLORHEXIDINE GLUCONATE 15 ML UDC MM SCH ×2 (09:40→17:15)
[2021-12-01] MEDS: CARBIDOPA/LEVODOPA 25/100 MG 1 UDTAB GT SCH ×2 (09:40→21:51)
[2021-12-01] MEDS: FINASTERIDE (5 MG) 5 MG TABLET GT SCH (09:41)
[2021-12-01] MEDS: CHOLESTYRAMINE/ASPARTAME 4 G/PKT PACKET GT SCH (09:46)
[2021-12-01 09:56] LABS: BAND % (MANUAL) 2 % (0.0-5.0); EOSINOPHILS % (MANUAL) 1 % (0-4); LYMPHOCYTES % (MANUAL) 13 % (16-48); MONOCYTES % (MANUAL) 8 % (0-11.0); NEUTROPHILS % (MANUAL) 72 (42-76); REACTIVE LYMPHOCYTES 4 % (0-0)
[2021-12-01 11:35] LABS: ALANINE AMINOTRANSFERASE 14 U/L (12-78); ASPARTATE AMINOTRANSFERASE 116 U/L (15-37); BILIRUBIN,TOTAL 0.4 mg/dL (0.2-1.0); CALCIUM, SERUM 7.8 mg/dL (8.5-10.1); CARBON DIOXIDE 22 mmol/L (21-32); CHLORIDE 107 mmol/L (98-107); CREATININE 1.6 mg/dL (0.6-1.3); GLUCOSE 190 mg/dL (74-106); MAGNESIUM 2.2 mg/dL (1.8-2.4); PHOSPHORUS 2.5 mg/dL (2.5-4.9); POTASSIUM 3.7 mmol/L (3.5-5.1); SODIUM SERUM 140 mmol/L (136-145); TOTAL PROTEIN, SERUM 5.2 g/dL (6.4-8.2); UREA NITROGEN, BLOOD 62 mg/dL (7-18)
[2021-12-01 12:19] LABS: ALBUMIN 1.4 g/dL (3.4-5.0); ALKALINE PHOSPHATASE 1167 U/L (46-116)
--- NOTE | 2021-12-01 18:55 | NUR ---
RN CLOSING NOTE PATIENT IN BED RESTING, OBTUNDED, NO S/S OF PAIN NOTED AT THIS TIME. ON VENT SETTING AT AC: 18, TV: 500, FIO2: 30, PEEP: 5 TOLERATING SETTING WELL, SATURATION 98-100%. IV ACCESS LIDIA MIDLINE, INTACT, PATENT AND FLUSHING WELL. PATIENT ON EXTERNAL BRAKE LINER WITH CURRENT READING OF SR AND HR OF 60. FALL AND SAFETY MEASURES IN PLACE, BED ALARM ON, BED IN LOW AND LOCK POSITION, CALL LIGHT AND TABLE WITHIN EASY REACH, SIDE RAILS UP X2. WILL ENDORSE TO WATCHMAKER APPRENTICE.
[2021-12-01 19:38] LABS: OCCULT BLOOD STOOL NEGATIVE (NEGATIVE)
--- NOTE | 2021-12-01 20:23 | NUR ---
RN NOTE STARTED PRBC TRANSFUSION AT 1940. PT TOLERATING. NO S/SX OF REACTION NOTED. VS STABLE. PT OBTUNDED, ON VENT. NO S/SX OF DISTRESS NOTED. GT IN PLACE. FEEDING ON HOLD. NOTED WITH DRAINAGE FROM AROUND GT SITE. HD CATH ON RCHEST IN PLACE. WILL CONTINUE TO MONITOR.
[2021-12-01] MEDS: INSULIN GLARGINE, 100 UNIT/ML CARTRIDGE SQ SCH (22:00)
--- NOTE | 2021-12-01 22:06 | NUR ---
RN NOTE PT FSBS 96. HELD DUE LANTUS. GT FEEDING STILL ON HOLD. WILL CONTINUE TO MONITOR.
[2021-12-02] VITALS: BP 96/52
[2021-12-02] MEDS: BLOOD SUGAR DIAGNOSTIC 1 EACH STRIP IN SCH ×4 (00:34→17:11)
[2021-12-02 04:00] VITALS: BP 133/58
[2021-12-02] MEDS: CEFTAZIDIME 1 G in IV D5W 50 ML IV SCH ×3 (05:32→20:14)
[2021-12-02 06:28] LABS: BASOPHILS % (AUTO) 0.3 % (0.0-2.0); EOSINOPHILS % (AUTO) 0.6 % (0.0-6.0); HEMATOCRIT 24 % (39-51); HEMOGLOBIN 7.7 g/dL (13.5-17.5); LYMPHOCYTES # (AUTO) 1.6 K/uL (0.8-4.8); LYMPHOCYTES % (AUTO) 12.6 % (20.0-44.0); MEAN CORPUSCULAR HGB CONC 32 g/dl (31.0-36.0); MEAN CORPUSCULAR VOLUME 95 fL (80-96); MONOCYTES # (AUTO) 1.2 K/uL (0.1-1.30); MONOCYTES % (AUTO) 9.6 % (2.0-12.0); NEUTROPHILS # (AUTO) 9.8 K/uL (1.8-8.9); NEUTROPHILS % (AUTO) 76.9 % (43.0-81.0); PLATELET COUNT (AUTO) 75 K/uL (150-450); RED BLOOD CELL COUNT(AUTO) 2.52 MIL/uL (4.5-6.0)
[2021-12-02 06:48] LABS: CALCIUM, SERUM 7.5 mg/dL (8.5-10.1); CARBON DIOXIDE 23 mmol/L (21-32); CHLORIDE 108 mmol/L (98-107); CREATININE 1.6 mg/dL (0.6-1.3); GLUCOSE 90 mg/dL (74-106); PHOSPHORUS 2.8 mg/dL (2.5-4.9); POTASSIUM 3.7 mmol/L (3.5-5.1); SODIUM SERUM 141 mmol/L (136-145); UREA NITROGEN, BLOOD 51 mg/dL (7-18)
--- NOTE | 2021-12-02 07:10 | NUR ---
RN NOTE PT TOLERATING VENT SETTINGS, NOT IN ANY DISTRESS. SUCTION NEEDED. GT FEEDING KEPT ON HOLD. NOTED WITH MILD BROWNISH DRAINAGE AROUND GT SITE. LIDIA ML PATENT AND INTACT, FLUSHES WELL. SR ON TELE MONITOR. REMAIN AFEBRILE. FSBS 77. ENDORSED TO NEXT SHIFT NURSE FOR BRIDGER.
--- NOTE | 2021-12-02 07:52 | NUR ---
RN OPENING NOTE PATIENT RECEIVED IN BED, OBTUNDED, EYES OPEN. PATIENT ON MECHANICAL VENTILATOR WITH FIO2 30%. G TUBE IN PLACE, FEEDING HELD ORDERED, AWAITING GI CONSULT. RIGHT UA MIDLINE AND RIGHT CW PERMACATH IN PLACE. NO SIGNS OF ACUTE DISTRESS NOTED AT THIS TIME. BED LOCKED AND IN LOWEST POSITION, CALL LIGHT WITHIN REACH, 2 SIDE RAILS UP. WILL CONTINUE TO MONITOR.
[2021-12-02 08:00] VITALS: BP 113/61
[2021-12-02] MEDS: CHOLESTYRAMINE/ASPARTAME 4 G/PKT PACKET GT SCH (08:25)
[2021-12-02] MEDS: VIT B CMPLX 3/FA/VIT C/BIOTIN 1 TAB TABLET GT SCH (08:25)
[2021-12-02] MEDS: CHLORHEXIDINE GLUCONATE 15 ML UDC MM SCH ×2 (08:25→16:19)
[2021-12-02] MEDS: LEVOTHYROXINE SODIUM 25 MCG TABLET GT SCH (08:25)
[2021-12-02] MEDS: CARVEDILOL 12.5 MG TABLET PO SCH ×2 (08:26→16:08)
[2021-12-02] MEDS: FERROUS SULFATE (325 MG) 325 MG/TAB TABLET GT SCH (08:26)
[2021-12-02] MEDS: CARBIDOPA/LEVODOPA 25/100 MG 1 UDTAB GT SCH ×2 (08:26→20:14)
[2021-12-02] MEDS: FINASTERIDE (5 MG) 5 MG TABLET GT SCH (08:26)
[2021-12-02 10:10] LABS: BAND % (MANUAL) 2 % (0.0-5.0); LYMPHOCYTES % (MANUAL) 11 % (16-48); METAMYELOCYTES % 1 % (0-0); MONOCYTES % (MANUAL) 9 % (0-11.0); MYELOCYTES % 4 % (0-0); NEUTROPHILS % (MANUAL) 73 (42-76); WHITE BLOOD COUNT (AUTO) 10.5 K/uL (4.3-11.0)
[2021-12-02 12:00] VITALS: BP 135/65
--- NOTE | 2021-12-02 15:37 | NUR ---
RN NOTE PER DR. THOMAS, WAIT FOR ANOTHER DAY TO RESUME FEEDING THROUGH GTUBE. STATIONARY ENGINEER SUPERVISOR THOMAS AWARE. WILL CONTINUE TO MONITOR.
[2021-12-02 16:00] VITALS: BP 107/86
--- NOTE | 2021-12-02 18:40 | NUR ---
RN CLOSING NOTE PATIENT REMAINS IN BED, OBTUNDED, EYES CLOSED. PATIENT ON MECHANICAL VENTILATOR WITH FIO2 30%. G TUBE IN PLACE, FEEDING HELD ORDERED, TO BE RESUME TOMORROW PER DR. THOMAS. RIGHT UA MIDLINE AND RIGHT CW PERMACATH IN PLACE. NO SIGNS OF ACUTE DISTRESS NOTED AT THIS TIME. ALL NEEDS ATTENDED DURING SHIFT. BED LOCKED AND IN LOWEST POSITION, CALL LIGHT WITHIN REACH, 2 SIDE RAILS UP. WILL ENDORSE TO SET RIDER NURSE.
[2021-12-02 20:00] VITALS: BP 120/61
--- NOTE | 2021-12-02 20:00 | NUR ---
FINISH MOLDER NOTE PATIENT IN BED RESTING, OBTUNDED, NO SOB NO DISTRESS NOTED .ON TELE MONITOR SR =71 SATING 99% NO S/S OF PAIN NOTED. ON VENT SETTING ORDERED TOLERATING WELL, IV ACCESS LIDIA MIDLINE, INTACT, PATENT AND FLUSHING WELL. V/S STABLE AFEBRILE ,ALL DUE MEDS GIVEN ORDERED INCLUDING IV ATB WITH NO ASE NOTED ,PTS STILL ON NPO STATUS WILL RESUME GT LIAN IN AM ORDERED . FALL AND SAFETY MEASURES IN PLACE, BED ALARM ON, BED IN LOW AND LOCK POSITION, CALL LIGHT AND TABLE WITHIN EASY REACH, SIDE RAILS UP X2. WILL CONTINUE TO MONITOR.
--- NOTE | 2021-12-02 21:20 | NUR ---
MELT ROOM OPERATOR NOTES REPORT GIVEN TO SARAH CHANDRA FOR CONTINUITY OF CARE.
[2021-12-02] MEDS: INSULIN GLARGINE, 100 UNIT/ML CARTRIDGE SQ SCH (21:22)
--- NOTE | 2021-12-02 21:22 | NUR ---
RECEIVED REPORT FROM RN. GHAZALA MOONEY. WILL CONTINUE TO MONITOR.
--- NOTE | 2021-12-02 21:22 | NUR ---
HELD GLARGINE DUE TO TUBE FEEDING BEING HELD. WILL CONTINUE TO MONITOR.
[2021-12-03] VITALS: BP 115/58
[2021-12-03] MEDS: BLOOD SUGAR DIAGNOSTIC 1 EACH STRIP IN SCH ×4 (00:04→17:41)
[2021-12-03] MEDS: INSULIN REGULAR, HUMAN 100 UNIT/ML 3 ML VIAL SQ PRN (00:05)
--- NOTE | 2021-12-03 00:05 | NUR ---
BS IS 65 MG/DL. DID NOT ADMINISTER INSULIN BUT DID ADMINISTER SOME JUICE TO PREVENT HYPOGLYCEMIA.
[2021-12-03 04:00] VITALS: BP 103/55
[2021-12-03] MEDS: CEFTAZIDIME 1 G in IV D5W 50 ML IV SCH ×3 (04:53→21:39)
--- NOTE | 2021-12-03 06:44 | NUR ---
RN CLOSING NOTES PT IN BED, WITH EYES OPEN, OBTUNDED. ON MECHANICAL VENT AND TOLERATING WELL. NO SOB NOTED. NO S/SX OF RESPIRATORY DISTRESS NOTED. TELE MONITOR DETECTS SINUS RHYTHM WITH RATE OF 60-70s. IV ACCESS IN LIDIA MIDLINE. IV IS INTACT, PATENT, AND FLUSHING WELL. ALL NEEDS MET. PT KEPT CLEAN AND DRY. SAFETY PRECAUTIONS IN PLACE: BED IN LOWEST, LOCKED POSITION, SIDERAILS UPx2, AND BRAKES ON. TABLE AND CALL LIGHT WITHIN REACH. WILL ENDORSE TO ONCOMING SHIFT FOR BRIDGER.
[2021-12-03 06:48] LABS: BASOPHILS % (AUTO) 0.3 % (0.0-2.0); EOSINOPHILS % (AUTO) 0.7 % (0.0-6.0); HEMATOCRIT 25 % (39-51); HEMOGLOBIN 8.1 g/dL (13.5-17.5); LYMPHOCYTES # (AUTO) 1.3 K/uL (0.8-4.8); LYMPHOCYTES % (AUTO) 9.4 % (20.0-44.0); MEAN CORPUSCULAR HGB CONC 32 g/dl (31.0-36.0); MEAN CORPUSCULAR VOLUME 95 fL (80-96); MONOCYTES # (AUTO) 1.3 K/uL (0.1-1.30); MONOCYTES % (AUTO) 9.7 % (2.0-12.0); NEUTROPHILS # (AUTO) 11.1 K/uL (1.8-8.9); NEUTROPHILS % (AUTO) 79.9 % (43.0-81.0); PLATELET COUNT (AUTO) 76 K/uL (150-450); RED BLOOD CELL COUNT(AUTO) 2.64 MIL/uL (4.5-6.0); WHITE BLOOD COUNT (AUTO) 13.9 K/uL (4.3-11.0)
[2021-12-03 07:08] LABS: CALCIUM, SERUM 7.4 mg/dL (8.5-10.1); CARBON DIOXIDE 21 mmol/L (21-32); CHLORIDE 107 mmol/L (98-107); CREATININE 1.9 mg/dL (0.6-1.3); GLUCOSE 93 mg/dL (74-106); MAGNESIUM 2.2 mg/dL (1.8-2.4); PHOSPHORUS 3.3 mg/dL (2.5-4.9); POTASSIUM 3.9 mmol/L (3.5-5.1); SODIUM SERUM 141 mmol/L (136-145); UREA NITROGEN, BLOOD 58 mg/dL (7-18)
--- NOTE | 2021-12-03 07:28 | NUR ---
RN OPENING NOTE PATIENT RECEIVED IN BED, OBTUNDED, EYES CLOSED. PATIENT ON MECHANICAL VENTILATOR WITH FIO2 30%. G TUBE IN PLACE, NO FEEDING RUNNING AT THIS TIME. RIGHT UA MIDLINE AND RIGHT CW PERMACATH IN PLACE. NO SIGNS OF ACUTE DISTRESS NOTED AT THIS TIME. BED LOCKED AND IN LOWEST POSITION, CALL LIGHT WITHIN REACH, 2 SIDE RAILS UP. WILL CONTINUE TO MONITOR.
[2021-12-03 08:00] VITALS: BP 119/68
[2021-12-03] MEDS: FINASTERIDE (5 MG) 5 MG TABLET GT SCH (08:10)
[2021-12-03] MEDS: LEVOTHYROXINE SODIUM 25 MCG TABLET GT SCH (08:10)
[2021-12-03] MEDS: CHLORHEXIDINE GLUCONATE 15 ML UDC MM SCH ×2 (08:10→16:43)
[2021-12-03] MEDS: CARBIDOPA/LEVODOPA 25/100 MG 1 UDTAB GT SCH ×2 (08:10→21:39)
[2021-12-03] MEDS: VIT B CMPLX 3/FA/VIT C/BIOTIN 1 TAB TABLET GT SCH (08:10)
[2021-12-03] MEDS: FERROUS SULFATE (325 MG) 325 MG/TAB TABLET GT SCH (08:10)
[2021-12-03] MEDS: CARVEDILOL 12.5 MG TABLET PO SCH ×3 (08:11→16:44)
[2021-12-03 08:12] LABS: BAND % (MANUAL) 2 % (0.0-5.0); LYMPHOCYTES % (MANUAL) 16 % (16-48); MONOCYTES % (MANUAL) 8 % (0-11.0); NEUTROPHILS % (MANUAL) 72 (42-76)
[2021-12-03 08:13] LABS: METAMYELOCYTES % 1 % (0-0); MYELOCYTES % 1 % (0-0)
[2021-12-03] MEDS: CHOLESTYRAMINE/ASPARTAME 4 G/PKT PACKET GT SCH (08:13)
--- NOTE | 2021-12-03 08:22 | NUR ---
RN NOTE PATIENT SCHEDULED FOR HD TODAY. BP MEDS HELD THIS AM. WILL CONTINUE TO MONITOR.
[2021-12-03] MEDS: NEPRO 1,000 ML BOTTLE GT PRN (08:35)
[2021-12-03] MEDS: ALBUMIN 25% 25 GM in PREMIX 1 EA IV PRN (10:32)
[2021-12-03] MEDS ORDERED: ALTEPLASE CATHFLO 2 MG/VIAL XX ONE (11:00)
[2021-12-03 12:00] VITALS: BP 91/47
[2021-12-03] MEDS: DOXYCYCLINE HYCLATE (100 MG) 100 MG TABLET PO SCH ×2 (12:14→21:39)
--- NOTE | 2021-12-03 12:36 | NUR ---
RN NOTE HD COMPLETED. BP 91/47, ALBUMIN GIVEN DURING HD. O2 SAT STABLE. 250 CC REMOVED. WILL CONTINUE TO MONITOR.
[2021-12-03 16:00] VITALS: BP 117/65
--- NOTE | 2021-12-03 16:00 | NUR ---
RN NOTE BLOODY AND LIQUID BM NOTED. NOTIFIED PRIMARY RAYON TESTER THOMAS. NO NEW ORDER AT THIS TIME. WILL CONTINUE TO MONITOR.
--- NOTE | 2021-12-03 18:37 | NUR ---
RN CLOSING NOTE PATIENT REMAINS IN BED, OBTUNDED, EYES OPEN. PATIENT ON MECHANICAL VENTILATOR WITH FIO2 30%. G TUBE IN PLACE, RUNNING FEEDING AT 35CC/HR, GRADUALLY INCREASING TO REACH THE ORDERED 45CC/HR. RIGHT UA MIDLINE AND RIGHT CW PERMACATH IN PLACE. NO SIGNS OF ACUTE DISTRESS NOTED AT THIS TIME. ALL NEEDS ATTENDED DURING SHIFT. BED LOCKED AND IN LOWEST POSITION, CALL LIGHT WITHIN REACH, 2 SIDE RAILS UP. WILL ENDORSE TO MASTIC FLOOR LAYER NURSE.
[2021-12-03 20:00] VITALS: BP 125/48
--- NOTE | 2021-12-03 20:00 | NUR ---
DRESSMAKER GARMENT FITTER OPENING NOTES: RECEIVED PATIENT SLEEP IN BED COMFORTABLY BED IN LOW POSITION, CALL LIGHTS WITHIN REACH, NO COMPLAIN OF PAIN AND DISCOMFORT AT THIS TIME, PATIENT IS OBTUNDED ON TELE MONITORING SR67, WITH RCW PERMACATH DIALYSIS DONE AT TODAY IN AM WITH 250CC OUTPUT, WITH LIDIA ML SL, PATIENT WAS HAVING MELENA BRIGHT RED, UPON ENDORSEMENT, PER AM NURSE WAS AWARE, NOTIFY BILINGUAL TEACHER AIDE DR ARGUETA ABOUT THE DISCHARGE AND ORDERED AN STOOL BLOOD OCCULT, AND MONITOR, NOTED AND CARRY OUT, PATIENT ON G TUBE FEEDING OF NEPRO @35 ML/HR TO INCREASE TO 45 ML IF TOLERATED, PATIENT KEPT CLEAN AND ALL NEEDS MET ENDORSE TO INCOMING SHIFT.
--- NOTE | 2021-12-03 20:30 | NUR ---
HAZARDOUS MATERIALS DRIVER NOTES: PATIENT WAS NOTED WITH BRIGHT RED MELENA IN LARGE AMOUNT, DURING SHIFT ENDORSEMENT WAS INFORMED BY RN THAT THE PATIENT HAS EPISODE AND MD WAS MADE AWARE, NOTIFIED DR DUBBING MACHINE OPERATOR, DR ARGUETA AND ORDERED STOOL OCCULT BLOOD X2, AND CONTINUE TO MONITOR, SPECIMEN WAS TAKEN AND NOTIFY, LABORATORY, ORDERED WAS NOTED AND CARRY OUT,
[2021-12-03] MEDS: PANTOPRAZOLE 40 MG VIAL IV SCH (21:39)
[2021-12-03] MEDS: INSULIN GLARGINE, 100 UNIT/ML CARTRIDGE SQ SCH (22:18)
[2021-12-03 23:16] LABS: OCCULT BLOOD STOOL POSITIVE (NEGATIVE)
[2021-12-04] VITALS (20 sets, daily range): BP systolic 54–123; BP diastolic 33–85
--- NOTE | 2021-12-04 00:30 | NUR ---
RN NOTES: BLOOD SUGAR-129- NO INSULIN GIVEN PER SLIDIG SCALE
[2021-12-04] MEDS: CEFTAZIDIME 1 G in IV D5W 50 ML IV SCH (04:47)
[2021-12-04] MEDS: BLOOD SUGAR DIAGNOSTIC 1 EACH STRIP IN SCH ×2 (06:00)
[2021-12-04] MEDS ORDERED: FEE EMEERGENCY 1 MIN EA MC ONE (06:30)
[2021-12-04] MEDS ORDERED: NOREPINEPHRINE 8MG/250ML RTU 250 ML IV ONE (06:57)
--- NOTE | 2021-12-04 07:00 | NUR ---
LEAD VULCANIZING OPERATOR NOTES RECEIVED ENDORSEMENT FROM CN THAT PATIENT HAS EPISODE OF BRIGHT RED BOWEL MOVEMENT, PER CN WAS MADE AWARE, DURING THE SHIFT, PATIENT WAS NOTED WITH FRESH MELENA, CN WAS MADE AWARE, NOTIFY ASSOCIATE DIRECTOR DR ARGUETA AND ORDERED OCCULT BLOOD STOOL X2 AND MONITOR. PATIENT LATEST HEMOGLOBIN WAS 8.1 V/S REMAIN THROUGHOUT THE NIGHT, AT 06:20AM PATIENT WAS OBSERVED WITH DECLINING PULSE AT 30 BPM, ME AND CHARGE NURSE WENT TO ROOM. SUCTIONING FOR SECRETION WAS DONE PATIENT HEART RATE REMAINS THE SAME, PATIENT CONTINUOUSLY DECLINED, CALLED RAPID RESPONSE, STAT CBC AND BLOOD ORDER WAS NOTED AND CARRY OUT, PATIENT WAS ABLE TO REVIVED AND TRANSFERRED TO ICU FOR FURTHER MONITORING AND MANAGEMENT,DAUGHTER EMERSON WAS MADE AWARE UPDATE ON HIS CONDITION. ENDORSE TO ICU NURSE HALI
[2021-12-04 07:13] LABS: BASOPHILS # (AUTO) 0.3 K/uL (0.0-0.2); BASOPHILS % (AUTO) 0.6 % (0.0-2.0); EOSINOPHILS % (AUTO) 0.5 % (0.0-6.0); LYMPHOCYTES # (AUTO) 15.4 K/uL (0.8-4.8); LYMPHOCYTES % (AUTO) 37.6 % (20.0-44.0); MEAN CORPUSCULAR HGB CONC 28 g/dl (31.0-36.0); MEAN CORPUSCULAR VOLUME 106 fL (80-96); MONOCYTES # (AUTO) 2.6 K/uL (0.1-1.30); MONOCYTES % (AUTO) 6.3 % (2.0-12.0); NEUTROPHILS # (AUTO) 22.5 K/uL (1.8-8.9); PLATELET COUNT (AUTO) 76 K/uL (150-450)
[2021-12-04] MEDS: NOREPINEPHRINE 8 MG in IV NS 0.9% 242 ML IV PRN ×2 (07:15→09:19)
[2021-12-04 07:18] LABS: CALCIUM, SERUM 10.1 mg/dL (8.5-10.1); CARBON DIOXIDE 12 mmol/L (21-32); CHLORIDE 107 mmol/L (98-107); CREATININE 1.8 mg/dL (0.6-1.3); MAGNESIUM 2.8 mg/dL (1.8-2.4); PHOSPHORUS 4.8 mg/dL (2.5-4.9); POTASSIUM 5.3 mmol/L (3.5-5.1); SODIUM SERUM 145 mmol/L (136-145); UREA NITROGEN, BLOOD 45 mg/dL (7-18)
[2021-12-04 07:25] LABS: GLUCOSE 34 mg/dL (74-106)
[2021-12-04] MEDS: LEVOTHYROXINE SODIUM 25 MCG TABLET GT SCH (07:30)
--- NOTE | 2021-12-04 07:30 | NUR ---
OPENING NOTE: REPORT RECEIVED FROM MARIELOS SMITH. PER REPORT PT CODED THIS AM AND JUST ARRIVED IN ICU. LEVOPHED GTT STARTED. PT IS CHRONIC VENT/TRACH PATIENT. PT IS UNRESPONSIVE. BLOOD GLUCOSE IF 37, 1 AMP OF D50 GIVEN PER MD ORDERS. RN AND ER MD DR CAAL TALKED TO PTS DAUGHTER AUNA. PT'S DAUGHTER WISHES TO MAKE PATIENT DNR. ORDERS GIVEN FROM DR CAAL. PT'S DAUGHTER STATED THE FAMILY WILL COME SEE PATIENT. WILL CONTINUE TO MONITOR.
[2021-12-04 07:42] LABS: RED BLOOD CELL COUNT(AUTO) 1.48 MIL/uL (4.5-6.0)
[2021-12-04 07:45] LABS: HEMATOCRIT 16 % (39-51); HEMOGLOBIN 4.4 g/dL (13.5-17.5)
[2021-12-04 08:08] LABS: BASOPHILS # (AUTO) 0.3 K/uL (0.0-0.2); BASOPHILS % (AUTO) 0.7 % (0.0-2.0); EOSINOPHILS % (AUTO) 0.9 % (0.0-6.0); LYMPHOCYTES # (AUTO) 15.3 K/uL (0.8-4.8); LYMPHOCYTES % (AUTO) 31.4 % (20.0-44.0); MEAN CORPUSCULAR HGB CONC 28 g/dl (31.0-36.0); MEAN CORPUSCULAR VOLUME 106 fL (80-96); MONOCYTES # (AUTO) 3.1 K/uL (0.1-1.30); MONOCYTES % (AUTO) 6.5 % (2.0-12.0); NEUTROPHILS # (AUTO) 29.5 K/uL (1.8-8.9); NEUTROPHILS % (AUTO) 60.5 % (43.0-81.0); PLATELET COUNT (AUTO) 84 K/uL (150-450)
[2021-12-04 08:09] LABS: HEMATOCRIT 16 % (39-51); HEMOGLOBIN 4.5 g/dL (13.5-17.5); RED BLOOD CELL COUNT(AUTO) 1.51 MIL/uL (4.5-6.0); WHITE BLOOD COUNT (AUTO) 48.7 K/uL (4.3-11.0)
--- NOTE | 2021-12-04 08:24 | NUR ---
PT. RECEIVED ON 100% FIO2 DUE TO POST CPR. Addendum: 12/04/21 at 0831 by PB MUHAMMAD RT Amended: Links added.
[2021-12-04 08:37] LABS: ALANINE AMINOTRANSFERASE 19 U/L (12-78); ASPARTATE AMINOTRANSFERASE 92 U/L (15-37); BILIRUBIN,TOTAL 0.7 mg/dL (0.2-1.0); CALCIUM, SERUM 9.2 mg/dL (8.5-10.1); CHLORIDE 106 mmol/L (98-107); CREATININE 1.9 mg/dL (0.6-1.3); GLUCOSE 122 mg/dL (74-106); POTASSIUM 4.9 mmol/L (3.5-5.1); SODIUM SERUM 143 mmol/L (136-145); TOTAL PROTEIN, SERUM 4.8 g/dL (6.4-8.2); UREA NITROGEN, BLOOD 46 mg/dL (7-18)
[2021-12-04 08:39] LABS: CARBON DIOXIDE 10 mmol/L (21-32)
[2021-12-04 08:40] LABS: ALBUMIN 1.3 g/dL (3.4-5.0); ALKALINE PHOSPHATASE 1018 U/L (46-116)
--- NOTE | 2021-12-04 08:43 | NUR ---
EMERGENCY BLOOD TRANSFUSION OF O NEG BLOOD COMPLETED INFUSION AT THIS TIME. SEE BLOOD TRANSFUSION DOCUMENTATION IN CHART.
[2021-12-04] MEDS: DOXYCYCLINE HYCLATE (100 MG) 100 MG TABLET PO SCH (09:00)
[2021-12-04] MEDS: CHLORHEXIDINE GLUCONATE 15 ML UDC MM SCH (09:00)
[2021-12-04] MEDS: FERROUS SULFATE (325 MG) 325 MG/TAB TABLET GT SCH (09:00)
[2021-12-04] MEDS: FINASTERIDE (5 MG) 5 MG TABLET GT SCH (09:00)
[2021-12-04] MEDS: CHOLESTYRAMINE/ASPARTAME 4 G/PKT PACKET GT SCH (09:00)
[2021-12-04] MEDS: VIT B CMPLX 3/FA/VIT C/BIOTIN 1 TAB TABLET GT SCH (09:00)
[2021-12-04] MEDS: PANTOPRAZOLE 40 MG VIAL IV SCH (09:00)
[2021-12-04] MEDS: CARVEDILOL 12.5 MG TABLET PO SCH (09:00)
[2021-12-04] MEDS: CARBIDOPA/LEVODOPA 25/100 MG 1 UDTAB GT SCH (09:00)
[2021-12-04] MEDS ORDERED: MORPHINE SULFATE INJ 4 MG/ML DISP.SYRIN IV ONE (10:30)
[2021-12-04] MEDS ORDERED: LORAZEPAM INJ 2 MG/ML VIAL IV PRN (10:30)
[2021-12-04] MEDS ORDERED: MORPHINE SULFATE INJ 2 MG/ML DISP.SYRIN IV PRN (10:30)
--- NOTE | 2021-12-04 10:30 | NUR ---
[employer] THOMAS TECHNICAL SALES REPRESENTATIVE SPOKE TO FAMILY IN ROOM. FAMILY REQUESTED PATIENT BE COMFORT MEASURES. ORDERS FOR COMFORT MEASURES PUT IN BY MARTHA RANDALL. RN INFORMED FAMILY TO LET HER KNOW WHEN THEY ARE READY FOR MORPHINE TO BE GIVEN.
--- NOTE | 2021-12-04 10:52 | NUR ---
FAMILY INFORMED RN THEY ARE READY TO START COMFORT MEASURES. MORPHINE 4MG IV GIVEN PER MD ORDERS.
[2021-12-04 11:11] LABS: LYMPHOCYTES % (MANUAL) 40 % (16-48); NEUTROPHILS % (MANUAL) 51 (42-76)
[2021-12-04 11:12] LABS: METAMYELOCYTES % 2 % (0-0); MONOCYTES % (MANUAL) 5 % (0-11.0); MYELOCYTES % 2 % (0-0)
--- NOTE | 2021-12-04 11:18 | NUR ---
LEVOPHED GTT STOPPED AND PT TAKEN OFF VENT, PLACED ON 2L TRACH MASK AT THIS TIME PER COMFORT MEASURES. FAMILY AT BEDSIDE SUPPORTIVE.
--- NOTE | 2021-12-04 11:23 | NUR ---
terminally wean as order. placed into 2 lpm o2 flow via trach mask, family is aware @ bedside. Addendum: 12/04/21 at 1125 by PB MUHAMMAD RT Amended: Links added.
--- NOTE | 2021-12-04 11:34 | NUR ---
NO HEART RHYTHM NOTED ON MONITOR. NO APICAL PULSE X 2 MINUTES. NO SIGNS OF RESPIRATIONS OR LIFE NOTED, PUPILS FIXED AND DILATED. PT PRONOUNCED AT 1134. FAMILY AT BEDSIDE
[2021-12-04] MEDS ORDERED: EPINEPHRINE (1:10,000) SYRINGE 1 MG/10 ML DISP.SYRIN IVP ONE (11:57)
[2021-12-04] MEDS ORDERED: DEXTROSE 50%-WATER 50 ML DISP.SYRIN IV ONE (11:57)
[2021-12-04] MEDS ORDERED: Sodium Bicarbonate 50 MEQ/50 ML VIAL IV ONE (11:57)
== END 2021-12-04 13:27 | DRG 870 ==
LOC: ER 18:12 → TELE-TD 22:43 → TELE1 11-25 15:44 → ICU 12-04 06:41
PROVIDERS: ADMIT Family Medicine; ATTEND Nurse Practitioner Family
PROC: 5A1955Z Respiratory Ventilation, Greater than 96 Consecutive Hours (ICD-10-PCS; principal; 2021-11-24)
PROC: 05H533Z Insertion of Infusion Device into Right Subclavian Vein, Percutaneous Approach (ICD-10-PCS; 2021-11-26)
PROC: B546ZZA Ultrasonography of Right Subclavian Vein, Guidance (ICD-10-PCS; 2021-11-26)
PROC: 30233N1 Transfusion of Nonautologous Red Blood Cells into Peripheral Vein, Percutaneous Approach (ICD-10-PCS; 2021-11-26)
PROC: 5A1D70Z Performance of Urinary Filtration, Intermittent, Less than 6 Hours Per Day (ICD-10-PCS; 2021-11-26)
PROC: 5A12012 Performance of Cardiac Output, Single, Manual (ICD-10-PCS; 2021-12-04)
DX: A41.9 Sepsis, unspecified organism (principal); G93.41 Metabolic encephalopathy; E43 Unspecified severe protein-calorie malnutrition; N18.6 End stage renal disease; J15.9 Unspecified bacterial pneumonia; J12.9 Viral pneumonia, unspecified; K72.00 Acute and subacute hepatic failure without coma; R65.21 Severe sepsis with septic shock; I12.0 Hypertensive chronic kidney disease with stage 5 chronic kidney disease or end stage renal disease; L03.311 Cellulitis of abdominal wall; Z51.5 Encounter for palliative care; Z99.11 Dependence on respirator [ventilator] status; K92.2 Gastrointestinal hemorrhage, unspecified; J90 Pleural effusion, not elsewhere classified; E87.2 Acidosis; N13.6 Pyonephrosis; L97.429 Non-pressure chronic ulcer of left heel and midfoot with unspecified severity; L97.419 Non-pressure chronic ulcer of right heel and midfoot with unspecified severity; C79.9 Secondary malignant neoplasm of unspecified site; J98.11 Atelectasis; K94.23 Gastrostomy malfunction; J96.10 Chronic respiratory failure, unspecified whether with hypoxia or hypercapnia; M86.8X7 Other osteomyelitis, ankle and foot; Z99.2 Dependence on renal dialysis; D69.6 Thrombocytopenia, unspecified; E03.9 Hypothyroidism, unspecified; I48.0 Paroxysmal atrial fibrillation; Z66 Do not resuscitate; Z85.46 Personal history of malignant neoplasm of prostate; D63.8 Anemia in other chronic diseases classified elsewhere; R74.01 Elevation of levels of liver transaminase levels; E88.09 Other disorders of plasma-protein metabolism, not elsewhere classified; Z68.29 Body mass index [BMI] 29.0-29.9, adult; Z88.0 Allergy status to penicillin; Z86.718 Personal history of other venous thrombosis and embolism; Z86.73 Personal history of transient ischemic attack (TIA), and cerebral infarction without residual deficits; Z93.0 Tracheostomy status; N40.0 Benign prostatic hyperplasia without lower urinary tract symptoms; E11.51 Type 2 diabetes mellitus with diabetic peripheral angiopathy without gangrene; L97.529 Non-pressure chronic ulcer of other part of left foot with unspecified severity; I70.244 Atherosclerosis of native arteries of left leg with ulceration of heel and midfoot; I70.245 Atherosclerosis of native arteries of left leg with ulceration of other part of foot; I70.234 Atherosclerosis of native arteries of right leg with ulceration of heel and midfoot; L89.620 Pressure ulcer of left heel, unstageable; L89.890 Pressure ulcer of other site, unstageable; L89.896 Pressure-induced deep tissue damage of other site; M24.571 Contracture, right ankle; M24.572 Contracture, left ankle; E11.65 Type 2 diabetes mellitus with hyperglycemia; L89.156 Pressure-induced deep tissue damage of sacral region; E11.649 Type 2 diabetes mellitus with hypoglycemia without coma; E11.22 Type 2 diabetes mellitus with diabetic chronic kidney disease; J32.3 Chronic sphenoidal sinusitis; Z86.19 Personal history of other infectious and parasitic diseases; Y84.8 Other medical procedures as the cause of abnormal reaction of the patient, or of later complication, without mention of misadventure at the time of the procedure; Y73.8 Miscellaneous gastroenterology and urology devices associated with adverse incidents, not elsewhere classified; Y92.129 Unspecified place in nursing home as the place of occurrence of the external cause; E11.69 Type 2 diabetes mellitus with other specified complication; Z79.4 Long term (current) use of insulin
CPT/HCPCS: 31720; 36415; 70450-TC; 71045-TC; 71250-TC; 76700-TC; 80048-TC; 80053-TC; 80076-TC; 80202-TC; 82272-TC; 82962-TC; 83540-TC; 83605-TC; 83735-TC; 84075-TC; 84100-TC; 84439-TC; 84443-TC; 84484-TC; 85025-TC; 85730-TC; 86706; 86850-TC; 87040-TC; 87070-TC; 87081-TC; 87186-TC; 87340; 90935-TC; 93307-TC; 93970-TC; 93971-TC; 94002-TC; 94003-TC; 94760-TC; 94762-TC; 94799-TC; 99082-TC; A4216; A4217; A4623; A6403; A7526; C9113; C9803; G0378; J0171; J0692; J0713; J0885; J1815; J2270; J2997; J3370; J7030; J7040; J7042; J7050; J7060; P9016; P9047; Q9963